=== PATIENT | male | born 1985 | race Hispanic/Latino ===

== ENCOUNTER 2020-10-02 13:53 | Inpatient (IN) | payer SELFPAY ==
[~2020-10-02] VITALS: Ht 170.2 cm; Wt 70.0 kg
--- NOTE | 2020-10-02 14:14 | NUR ---
PATIENT AMBULATED TO ROOM WITH STEADY GAIT AND PHYSICIAN NOTIFIED OF PATIENT STATUS
[2020-10-02 15:23] LABS: URINE BLOOD DIPSTICK NEGATIVE (NEGATIVE); URINE COLOR YELLOW; URINE GLUCOSE - DIPSTICK NEGATIVE (NEGATIVE); URINE KETONE NEGATIVE (NEGATIVE); URINE LEUK ESTERASE NEGATIVE (NEGATIVE); URINE PH 6.5 (4.5-8.0); URINE PROTEIN - DIPSTICK NEGATIVE (NEG-TRACE); URINE UROBILINOGEN - DIPSTICK >=8.0 E.U./dL (0.2)
[2020-10-02 15:23] LABS: HEMATOCRIT 40.3 % (39.0-50.0); HEMOGLOBIN 13.7 g/dl (14.0-18.0); IMMATURE GRANULOCYTES 0.7 % (0.0-5.0); MEAN CELL VOLUME 84.3 fL CALC (80.0-100.0); MEAN CORPUSCULAR HGB 28.7 pG CALC (26.0-32.0); NEUT# 9.07 thou/uL (1.82-7.42); RED BLOOD COUNT 4.78 mill/uL (4.70-6.10); RED CELL DISTRI WIDTH 12.7 % (11.5-15.5)
[2020-10-02 15:27] LABS: URINE BILIRUBIN - DIPSTICK NEGATIVE (NEGATIVE); URINE NITRITE - DIPSTICK NEGATIVE (Negative)
[2020-10-02 15:36] LABS: ALBUMIN 3.8 g/dL (3.2-5.0); ALKALINE PHOSPHATASE 253 u/l (38-126); AMYLASE 80 u/l (30-110); ANION GAP 14 (6-22 (CALC)); BUN 14 mg/dL (9-20); BUN/CREATININE RATIO 15 (12-20 (CALC)); CARBON DIOXIDE 26 mmol/l (22-30); CHLORIDE 98 mmol/l (95-108); CREATININE 0.9 mg/dL (0.7-1.3); GFR > 60 ML/MIN (>=60 (CALC)); GFR FOR AFR.AMER. > 60 ML/MIN (>=60 (CALC)); LIPASE 305 u/l (23-300); POTASSIUM 3.7 mmol/l (3.5-5.1); SGOT/AST 75 u/l (17-59); SODIUM 135 mmol/l (137-146); TOTAL PROTEIN 7.2 g/dL (6.3-8.2)
--- NOTE | 2020-10-02 16:43 | NUR ---
SBAR PRINTED TO FLOOR
--- NOTE | 2020-10-02 18:34 | NUR ---
PATIENT ROUNDING, REMAINS BEDSIDE WITH PATIENT. PATIENT DENIES ANY NEEDS CURRENTLY.
--- NOTE | 2020-10-02 19:01 | NUR ---
REPORT TO CATHI RN
--- NOTE | 2020-10-02 20:55 | NUR ---
PT REPORT TO NURSE GILL ON MS
--- NOTE | 2020-10-02 21:00 | NUR ---
PT TRANSPORTED TO [facility] VIA IN STABLE CONDITION
[2020-10-02 21:20] VITALS: BP 120/71
--- NOTE | 2020-10-02 22:45 | NUR ---
PT ARRIVED ON UNIT VIA WHEELCHAIR, ESCORTED BY ER STAFF. BREATHING EVEN AND UNLABORED. NO S/S OF DISTRESS NOTED. PT DOES SPEAK MOSTLY UZBE[place] BUT DOES UNDERSTAND ENOUGH ROMANIAN TO PARTICIPATE WITH ADMISSION. PT AMBULATED INDEPENDENTLY, NO ASSISTANCE NEEDED WITH ADL'S. C/O PAIN IN LEFT FLANK THAT RADIATES TO THE BACK. MEDICATED PT WITH MORPHINE AND STARTED IV FLUIDS UPON ARRIVAL TO THE FLOOR. SAFETY PRECAUTIONS IN PLACE, BED IN LOWEST POSITION, CALL LIGHT WITHIN REACH. ASSESSMENTS COMPLETED, SEE DOCUMENTATION. WILL MONITOR
--- NOTE | 2020-10-03 00:27 | NUR ---
PT RESTING QUIETLY IN BED, NO CONCERNS VOICED, REPORTS DECREASED PAIN. BREATHING EVEN AND UNLABORED, NO S/S OF DISTRESS. SAEFTY PRECAUTIONS REMIAN IN PLACE, BED IN LOWEST POSITION, CALL LIGHT WITHIN REACH
[2020-10-03 04:00] VITALS: BP 126/65
--- NOTE | 2020-10-03 05:17 | NUR ---
PT RESTING QUIETLY WITH EYES CLOSED. NO COMPLAINTS VOICED AT THIS TIME. NO S/S OF DISTRESS NOTED. BREATHING EVEN AND UNLABORED. WILL MONITOR
[2020-10-03 05:24] LABS: HEMATOCRIT 37.1 % (39.0-50.0); HEMOGLOBIN 12.5 g/dl (14.0-18.0); IMMATURE GRANULOCYTES 0.3 % (0.0-5.0); MEAN CELL VOLUME 84.7 fL CALC (80.0-100.0); MEAN CORPUSCULAR HGB 28.5 pG CALC (26.0-32.0); MEAN CORPUSCULAR HGB CONC 33.7 g/dL CAL (32.0-36.0); NEUT# 8.66 thou/uL (1.82-7.42); RED BLOOD COUNT 4.38 mill/uL (4.70-6.10); RED CELL DISTRI WIDTH 12.7 % (11.5-15.5)
[2020-10-03 05:44] LABS: ALBUMIN 3.4 g/dL (3.2-5.0); ALKALINE PHOSPHATASE 237 u/l (38-126); ANION GAP 12 (6-22 (CALC)); BILIRUBIN, TOTAL 1.9 mg/dL (0.0-1.4); BUN 17 mg/dL (9-20); BUN/CREATININE RATIO 20 (12-20 (CALC)); CALCULATED LDLCHOLESTEROL 145 mg/dL (62-129 (CALC)); CARBON DIOXIDE 25 mmol/l (22-30); CHLORIDE 103 mmol/l (95-108); CHOLESTEROL HDL RATIO 10.4 (<4.4 (CALC)); CREATININE 0.8 mg/dL (0.7-1.3); GFR > 60 ML/MIN (>=60 (CALC)); GFR FOR AFR.AMER. > 60 ML/MIN (>=60 (CALC)); HDL CHOLESTEROL 22 mg/dL (>=40); LIPASE 304 u/l (23-300); MAGNESIUM 2.2 mg/dL (1.6-2.3); POTASSIUM 3.9 mmol/l (3.5-5.1); SGOT/AST 43 u/l (17-59); SODIUM 136 mmol/l (137-146); TOTAL CHOLESTEROL 233 mg/dl (0-199); TOTAL PROTEIN 6.5 g/dL (6.3-8.2); TOTAL TRIGLYCERIDES 324 mg/dl (30-149); VLDL CHOLESTROL 65 mg/dl (5-56 (CALC))
[2020-10-03 08:05] VITALS: BP 115/49
--- NOTE | 2020-10-03 08:05 | NUR ---
ASSESSMENT IS COMPLETED: IV SITE IS FREE FROM REDNESS OR EDEMA. HR IS REG,PULSES ARE STRONG X4, ABD IS SOFT WITH ACTIVE BS. BREATH SOUNDS ARE CLEAR,BILATERALLY, NO C/O PAIN VOICED. CONTINUE TO OBSERVE AND MONITOR.
[2020-10-03 15:15] VITALS: BP 128/70
--- NOTE | 2020-10-03 16:50 | NUR ---
PT HAS BEEN SITTING ON THE SIDE OF THE BED WITH NO DISTRESS NOTED. IV SITE IS FREE FROM REDNESS OR EDEMA.
[2020-10-03 19:59] VITALS: BP 118/64
--- NOTE | 2020-10-03 20:00 | NUR ---
PATIENT RESTING IN BED AT THIS TIME-AWAKE ALERT AND ORIENTEDX3 WATCHING TV-TAKING ONLY SMALL AMTS OF CLEAR LIQUID TRAY. DENIES ANY NAUSEA AT THIS TIME BUT IS C/O LEFT ABD PAIN. MEDICATED WITH MORPHINE 2MG IVP FOR PAIN. IVF NS PATENT AND INFUSING VIA RAC SITE AT 100CC/HR. SITE REMAINS HEALTHY AT THIS TIME. PATIENT STATES THAT HIS LAST BM WAS MONDAY. ABD IS SOFT WITH BS+. LUNGS ARE CLEAR. NO PERIPHERAL EDEMA NOTED. PULSES ARE PALPABLE. SAFETY PRECAUTIONS REINFORCED. CALL LIGHT IN REACH. WILL CONT TO MONITOR.
--- NOTE | 2020-10-03 23:03 | NUR ---
PATIENT RESTING IN BED AT THIS TIME WATCHING TV. IGVF PPATENT AND INFUSING VIA RAC SITE AT 100CC/HR. TAKING CLEAR LIQUIDS IN SMALL AMTS. NO COM PLAINTS AT THIS TIME. CALL LIGHT IN REACH. WILL CONT TO MONITOR.
--- NOTE | 2020-10-04 00:45 | NUR ---
PATIENT RESTING IN BED- RESPS ARE EVEN AND UNLABORED. IVF PATENT AND INFUSING VIA RAC AT 100CC/HR. CALL LIGHT IN REACH. WILL CONT TO MONITOR.
--- NOTE | 2020-10-04 03:07 | NUR ---
PATIENT CALLED AND C/O ABD PAIN-6/10 ON PAIN SCALE. MEDICATED WITH MORPHINE 2MG IVP FOR PAIN. IVF NS PATENT AND INFUSING VIA RAC SITE AT 100CC/HR. CALL LIGHT IN REACH. WILL CONT TO MONITOR.
[2020-10-04 04:00] VITALS: BP 115/65
[2020-10-04 05:16] LABS: HEMATOCRIT 37.7 % (39.0-50.0); HEMOGLOBIN 12.7 g/dl (14.0-18.0); MEAN CELL VOLUME 85.5 fL CALC (80.0-100.0); MEAN CORPUSCULAR HGB 28.8 pG CALC (26.0-32.0); MEAN CORPUSCULAR HGB CONC 33.7 g/dL CAL (32.0-36.0); RED BLOOD COUNT 4.41 mill/uL (4.70-6.10); RED CELL DISTRI WIDTH 12.5 % (11.5-15.5)
[2020-10-04 05:37] LABS: ALBUMIN 3.2 g/dL (3.2-5.0); ALKALINE PHOSPHATASE 268 u/l (38-126); ANION GAP 13 (6-22 (CALC)); BILIRUBIN, TOTAL 1.7 mg/dL (0.0-1.4); BUN 13 mg/dL (9-20); BUN/CREATININE RATIO 16 (12-20 (CALC)); CARBON DIOXIDE 24 mmol/l (22-30); CHLORIDE 101 mmol/l (95-108); CREATININE 0.8 mg/dL (0.7-1.3); GFR > 60 ML/MIN (>=60 (CALC)); GFR FOR AFR.AMER. > 60 ML/MIN (>=60 (CALC)); SGOT/AST 38 u/l (17-59); SODIUM 134 mmol/l (137-146); TOTAL PROTEIN 6.5 g/dL (6.3-8.2)
[2020-10-04 07:52] VITALS: BP 105/54
--- NOTE | 2020-10-04 07:57 | NUR ---
REPORT RECEIVED FROM AMBREEN COTTER. PT RESTING IN BED SUPINE; ALERT AND ORIENTED. C/O 6/10 ABDOMINAL LLQ PAIN; BS ACTIVE AND ABDOMEN SOFT. RESPIRATIONS EVEN AND UNLABORED ON ROOM AIR. DENIES SOB AND NAUSEA; PROVIDED CLEAR LIQUID BREAKFAST. VSS. NS INFUSING AT 100 ML/HR; #18 TO RAC APPEARS HEALTHY. POC REVIEWED; PT ENCOURAGED TO VERBALIZE CONCERNS; STATES UNDERSTANDING. SAFETY MEASURES IN PLACE. CALL LIGHT WITHIN REACH.
--- NOTE | 2020-10-04 11:05 | NUR ---
DR. VIEYRA AND DR. GE AT BEDSIDE.
--- NOTE | 2020-10-04 13:10 | NUR ---
TYLENOL GIVEN FOR ABDOMINAL PAIN; FAMILY MEMBER AT BEDSIDE. PT IS INDEPENDENT IN ROOM; NO REQUESTS OR CONCERNS AT THIS TIME.
[2020-10-04 15:00] VITALS: BP 120/67
--- NOTE | 2020-10-04 18:30 | NUR ---
ADVANCED TO SOFT DIET AND PT TOLERATING WELL. AMBULATED TO BATHROOM FOR BOWEL MOVEMENT. MORPHINE GIVEN AT THIS TIME FOR 6/10 ABDOMINAL PAIN. VOIDING CLEAR, YELLOW URINE IN ADEQUATE AMOUNTS. CALL LIGHT WITHIN REACH.
--- NOTE | 2020-10-04 19:30 | NUR ---
PATIENT RESTING IN BED AT THIS TIME-AWAKE ALERT AND ORIENTEDX3. PATIENT STATES THAT HE DID HAVE SOME RELIEF FROM MORPHINE GIVEN TO HIM EARLIER. PATIENT STATES THAT HE WAS ABLE TO EAT AND TOLERATE DINNER OK-DENIES ANY NAUSEA. STATES THAT HE DID HAVE NORMAL BM TODAY. DENIES ANY DIFFICULTY WITH URINATION. ABD IS SOFT WITH BS+. LUNGS ARE CLEAR. NO PERIPHERAL EDEMA NOTED. PULSES ARE PALPABLE. SAFETY PRECAUTIONS REINFORCED. CALL LIGHT IN REACH. WILL CONT TO MONITOR.
[2020-10-04 19:55] VITALS: BP 138/68
--- NOTE | 2020-10-05 00:22 | NUR ---
PATIENT RESTING IN BED AT THIS TIME. IVF NS PATENT AND INFUSING AT 100CC/HR VIA RAC SITE. C/O ABD PAIN-7/10 ON PAIN SCALE. MEDICATED FOR PAIN WITH MORPHINE 2MG. SAFETY PRECAUTIONS REINFORCED. CALL LIGHT IN REACH. WILL CONT TO MONITOR.
--- NOTE | 2020-10-05 03:24 | NUR ---
PATIENT RESTING IN BED AT THIS TIME WITH EYES CLOSED. RESPS ARE EVEN AND UNLABORED. IVF NS PATENT AND INFUSING VIA RAC SITE. CALL LIGHT IN REACH. WILL CONT TO MONITOR.
[2020-10-05 04:28] VITALS: BP 123/61
[2020-10-05 05:38] LABS: HEMOGLOBIN 12.2 g/dl (14.0-18.0); MEAN CELL VOLUME 85.7 fL CALC (80.0-100.0); MEAN CORPUSCULAR HGB CONC 33.9 g/dL CAL (32.0-36.0); RED BLOOD COUNT 4.2 mill/uL (4.70-6.10); RED CELL DISTRI WIDTH 12.3 % (11.5-15.5)
[2020-10-05 05:54] LABS: ALBUMIN 3.2 g/dL (3.2-5.0); ALKALINE PHOSPHATASE 296 u/l (38-126); ANION GAP 12 (6-22 (CALC)); BUN 12 mg/dL (9-20); BUN/CREATININE RATIO 15 (12-20 (CALC)); CARBON DIOXIDE 25 mmol/l (22-30); CHLORIDE 103 mmol/l (95-108); CREATININE 0.8 mg/dL (0.7-1.3); GFR > 60 ML/MIN (>=60 (CALC)); GFR FOR AFR.AMER. > 60 ML/MIN (>=60 (CALC)); SGOT/AST 50 u/l (17-59); SODIUM 136 mmol/l (137-146); TOTAL PROTEIN 6.4 g/dL (6.3-8.2)
[2020-10-05 05:57] LABS: BILIRUBIN, TOTAL 0.7 mg/dL (0.0-1.4)
[2020-10-05 08:23] VITALS: BP 116/67
--- NOTE | 2020-10-05 08:35 | NUR ---
SHIFT CHANGE REPORT, PT AWAKE ALERT AND ORIENTED RESTING IN BED AFTEAR EATEING MEAL, REPORTS MILD PAIN TO ABD AT THIS TIME, IVF INFUSING TO SITE IN RAC, CALL HARDING IN REACH AND BED LOCKED IN LOWEST POSITION.
--- NOTE | 2020-10-05 12:00 | NUR ---
RELAXING IN BED IN SUPINE POSITION, PAIN CONCERNS ADDRESSED, NO NEW COMPLAINS, WILL CONTINUE TO MONITOR.
--- NOTE | 2020-10-05 16:00 | NUR ---
TRANSPORTED OFF UNIT FOR PROCEDURE BUT RETURNED WITHOUT HAVING IT DONE, STAFF MARCELINA REPORTED RADIOLOGY STAFF SAID MACHINE MALFUNCTIONED AND THEY WERE UNABLE TO PERFORM PROCEDURE, PT WAS RECONNECTED TO [facility] AND SETTLED IN BED.
[2020-10-05 19:00] VITALS: BP 109/62
--- NOTE | 2020-10-05 20:00 | NUR ---
PATIENT RESTING IN BED AT THIS TIME-AWAKE ALERT AND ORIENTEDX3. IVF PATENT AND INFUSING VAI RAC SITE AT 100CC/HR. SITE REMAINS HEALTHY AT THIS TIME. NO COMPLAINTS AT THIS TIME. STATES THAT HE HAD BM TODAY AND NO DIFFICULTY WITH URINATION. SAFETY PRECAUTIONS REINFORCED. CALL LIGHT IN REACH. WILL CONT TO MONITOR.
--- NOTE | 2020-10-05 22:13 | NUR ---
PATIENT RESTING IN BED-C/O BD PAIN-6/10 ON PAIN SCALE. MEDICATED WITH MORPHINE 2MG IVP FOR PAIN. IVF NS PATENT AND INFUSING VIA RAC SITE AT 100CC/HR. SITE REMAINS HEALTHY AT THIS TIME. CALL LIGHT IN REACH. WILL CONT TO MONITOR.
--- NOTE | 2020-10-06 01:28 | NUR ---
PATIENT RESTING IN BED AT THIS TIME WITH EYES CLOSED. RESPS ARE EVEN AND UNLABORED. IVF NS PATENT AND INFUSING VIA RAC SITE AT 100CC/HR. SITE REMAINS HEALTHY. CALL LIGHT IN REACH. WILL CONT TO MONITOR.
[2020-10-06 04:00] VITALS: BP 102/57
--- NOTE | 2020-10-06 04:23 | NUR ---
PATIENT RESTING IN BED AT THIS TIME-EYES ARE CLOSED AND RESPS ARE EVEN AND UNLABORED. NPO FOR U/S ABD THIS MORNING. IVF NS PATENT AND INFUSING AT 100CC/HR VIA RAC SITE. CALL LIGHT IN REACH. WILL CONT TO MONITOR.
[2020-10-06 08:12] VITALS: BP 111/60
--- NOTE | 2020-10-06 08:12 | NUR ---
PT LAYING IN BED. A&O X4. NO DISTRESS NOTED, PT C/O RUQ PAIN BUT HAS IMPROVED COMPARED TO YESTERDAY. UPDATED PT ON SCHEDULED DIAGNOSTIC TESTING. PT AGREEABLE. DR CRUZ AND Destinee HICKS APRN NOTIFIED OF UNSUCCESSFUL ATTEMPT OF OBTAINING MRCP YESTERDAY, PER BETH IN MRI MRCP TO BE FIXED TOMORROW. CLEAR BREATH SOUNDS HEARD UPON ASUCULTATION. ACTIVE BOWEL SOUNDS X4 QUADRANTS. IV HEALTHY AND PATENT WITH IVF INFUSING PER MAR ORDERS. NO OTHER NEEDS AT THIS TIME. CALL LIGHT WITHIN REACH. ASSESSMENT COMPLETED. DISCUSSED POC
--- NOTE | 2020-10-06 09:10 | NUR ---
PT note Patient is screened for PT intervention and no needs are identfied at this time
--- NOTE | 2020-10-06 09:36 | NUR ---
DR CRUZ AND Destinee HICKS THEATRE [employer] PROFESSOR AT BEDSIDE DISCUSSING POC
--- NOTE | 2020-10-06 09:50 | NUR ---
PT TAKEN VIA WC ACCOMPANIED BY [facility] IN STABLE CONDITION.
--- NOTE | 2020-10-06 12:25 | NUR ---
DR GARCES AT BEDSIDE
--- NOTE | 2020-10-06 12:59 | NUR ---
PT LAYING IN BED NO NEEDS AT THIS TIME. CALL LIGHT WITHIN REACH.
[2020-10-06 15:22] VITALS: BP 121/67
--- NOTE | 2020-10-06 17:19 | NUR ---
PT C/O OF PAIN, PAIN MEDICATION TO BE GIVEN. PT UPDATED ON POC. CALL LIGHT WITHIN REACH.
[2020-10-06 18:52] VITALS: BP 111/65
--- NOTE | 2020-10-06 20:00 | NUR ---
PATIENT RESTING IN BED AT THIS TIME-AWAKE ALERT AND ORIENTEDX3. PATIENT WITH NO COMPLAINTS AT THIS TIME IVF NS PATENT AND INFUSING VIA RAC AT 100CC/HR. PATIENT IS STILL WAITING FOR MRCP-TO BE DONE IN AM. TAKING CLEAR LIQUID DIET. SAFETY PRECAUTIONS REINFORCED. CALL LIGHT IN REACH. WILL CONT TO MONITOR.
--- NOTE | 2020-10-07 02:29 | NUR ---
PATIENT RESTING IN BED AT THIS TIME WITH EYES CLOSED. RESPS ARE EVEN AND UNLABORED. NPO FOR MRCP IN AM. IVF PATENT AND INFUSING VIA RAC AT 100CC/HR. CALL LIGHT IN REACH. WILL CONT TO MONITOR.
[2020-10-07 04:00] VITALS: BP 109/58
--- NOTE | 2020-10-07 05:01 | NUR ---
PATIENT RESTING IN BED AT THIS TIME WITH EYES CLOSED. RESPS ARE EVEN AND UNLABORED. IVF PATENT AN DINFUSING VIA [facility] SITE. NPO FOR MRCP TODAY. CALL LIGHT IN REACH. WILL CONT TO MONITOR.
[2020-10-07 05:45] LABS: HEMATOCRIT 37.3 % (39.0-50.0); HEMOGLOBIN 12.7 g/dl (14.0-18.0); IMMATURE GRANULOCYTES 0.4 % (0.0-5.0); MEAN CELL VOLUME 83.1 fL CALC (80.0-100.0); MEAN CORPUSCULAR HGB 28.3 pG CALC (26.0-32.0); NEUT# 5.15 thou/uL (1.82-7.42); RED BLOOD COUNT 4.49 mill/uL (4.70-6.10); RED CELL DISTRI WIDTH 12.1 % (11.5-15.5)
[2020-10-07 05:51] LABS: ALBUMIN 3.4 g/dL (3.2-5.0); ALKALINE PHOSPHATASE 285 u/l (38-126); ANION GAP 14 (6-22 (CALC)); BILIRUBIN, TOTAL 0.6 mg/dL (0.0-1.4); BUN 12 mg/dL (9-20); BUN/CREATININE RATIO 15 (12-20 (CALC)); CARBON DIOXIDE 25 mmol/l (22-30); CHLORIDE 102 mmol/l (95-108); CREATININE 0.8 mg/dL (0.7-1.3); GFR > 60 ML/MIN (>=60 (CALC)); GFR FOR AFR.AMER. > 60 ML/MIN (>=60 (CALC)); SGOT/AST 41 u/l (17-59); SODIUM 137 mmol/l (137-146); TOTAL PROTEIN 6.6 g/dL (6.3-8.2)
[2020-10-07 09:15] VITALS: BP 115/57
[2020-10-07 15:00] VITALS: BP 117/68
[2020-10-07 19:00] VITALS: BP 112/67
--- NOTE | 2020-10-07 19:48 | NUR ---
PT IN LOW FOWLERS WATCHING TV. ASKED FOR ICE WATER, DENIED ANY OTHER NEEDS. HE DID REPORT THAT THE SUGAR IN A JUICE HE DRANK "KIND OF MADE HIS STOMACH MAKE SOUNDS." ACTIVE BOWEL SOUNDS, HYPERACTIVE BS IN LUQ. LUNG SOUNDS ARE CLEAR AT THIS TIME. ABD FIRM NON-DISTENDED.
--- NOTE | 2020-10-08 00:13 | NUR ---
PT PULLED CALL LIGHT FROM WALL. LIGHT REPLACED BACK, PT DENIED ANY NEEDS AT THIS TIME.
--- NOTE | 2020-10-08 02:31 | NUR ---
IVF REPLENISHED AT THIS TIME. PT DENIES ANY OTHER NEEDS.
--- NOTE | 2020-10-08 03:40 | NUR ---
PT PLACED NPO AT THIS TIME. FLUIDS REMOVED FROM BEDSIDE AND PT INSTRUCTED NOT TO DRINK OR EAT FOR PENDING MRCP TEST.
[2020-10-08 03:58] VITALS: BP 94/49
[2020-10-08 06:20] LABS: ALBUMIN 3.2 g/dL (3.2-5.0); ALKALINE PHOSPHATASE 240 u/l (38-126); ANION GAP 11 (6-22 (CALC)); BILIRUBIN, TOTAL 0.4 mg/dL (0.0-1.4); BUN 11 mg/dL (9-20); BUN/CREATININE RATIO 14 (12-20 (CALC)); CARBON DIOXIDE 26 mmol/l (22-30); CHLORIDE 105 mmol/l (95-108); CREATININE 0.8 mg/dL (0.7-1.3); GFR > 60 ML/MIN (>=60 (CALC)); GFR FOR AFR.AMER. > 60 ML/MIN (>=60 (CALC)); SGOT/AST 33 u/l (17-59); SODIUM 138 mmol/l (137-146); TOTAL PROTEIN 6.4 g/dL (6.3-8.2)
[2020-10-08 08:00] VITALS: BP 93/61
--- NOTE | 2020-10-08 08:00 | NUR ---
PT WAS FOUND RESTING IN BED;PT IS A&OX3;VS AND ASSESSMENT WERE COMPLETED;HEART SOUNDS ARE REGULAR IN RATE AND RHYTHM;LUNG SOUNDS ARE CLEAR;RESPIRATIONS ARE EVEN AND UNLABORED ON RA;#18G IV IN RAC IS RUNNING NS @100ML/HR;IV SITE APPEARS FREE OF COMPLICATIONS AT THIS TIME;SAFETY PRECAUTIONS IN PLACE;CALL LIGHT WITHIN REACH;PT ENCOURAGED TO CALL WITH ANY ISSUES OR CONCERNS;WILL CONTINUE TO MONITOR.
--- NOTE | 2020-10-08 09:05 | NUR ---
PT WAS TRANSPORTED IN STABLE CONDITION VIA WC TO MRI FOR MRCP ACCOMPANIED BY STAFF
--- NOTE | 2020-10-08 10:00 | NUR ---
PT RETURNED IN STABLE CONDITION FROM MRI VIA WC ACCOMPANIED BY STAFF
--- NOTE | 2020-10-08 12:00 | NUR ---
PT WAS FOUND RESTING IN BED;PT HAS NO REPORTS OF PAIN AT THIS TIME;SAFETY PRECAUTIONS IN PLACE;CALL LIGHT WITHIN REACH;WILL CONTINUE TO MONITOR.
--- NOTE | 2020-10-08 15:30 | NUR ---
Discharge instructions given. Patient verbalizes understanding of same. Discharged in stable condition via Medical Transport to *Other with staff. All belongings sent with pt. PT WAS TRANSFERRED TO [facility] IN STABLE CONDITION VIA [facility];PT WAS TRANSFERRED FOR ERCP PROCEDURE THAT IS UNAVAILABLE AT THIS FACILITY AT THIS TIME;PT WAS TRANSFERRED WITH IV IN PLACE;#18G IN RAC;IV SITE WAS PATENT AND FREE OF COMPLICATIONS AT THE TIME OF TRANSFER;ALL PT BELONGINGS WERE SENT WITH PT;PT REPORT CALLED TO [facility] UPON DEPARTURE
--- NOTE | 2020-10-08 16:08 | NUR ---
PT REPORT CALLED TO [facility];SPOKE WITH NURSE PENNY;PT INFO WAS GIVEN AND SHE HAD NO FURTHER QUESTIONS FOR ME;PT IS BEING TRANSPORTED VIA [facility]
== END 2020-10-08 18:30 | disposition short-term general hospital (02) | DRG 440 ==
LOC: ED 13:53 → ED-I 16:42 → ED 17:35 → ED-I 17:36 → MS2 17:36
PROVIDERS: Emergency Medicine; Nurse Practitioner; Nurse Practitioner Family; ADMIT Internal Medicine; ATTEND Internal Medicine
DX: K85.90 Acute pancreatitis without necrosis or infection, unspecified (principal); K83.8 Other specified diseases of biliary tract; Z20.822 Contact with and (suspected) exposure to COVID-19
CPT/HCPCS: Q9967